=== PATIENT | male | born 1935 ===

== ENCOUNTER → 2016-09-06 | Day surgery (SDC) | payer MEDICARE, OTHER ==
[~2016-09-06] MED LIST: Acetaminophen/HYDROcodone 325-5 MG Tab PO ONE; Bacitracin/Neomycin/Polymyxin B Oint 0.9 GM U/D Packet ONE; Lactated Ringers 1,000 ML IV SCH; Lidocaine 2% with EPINEPHrine 1:100,000 20 ML MDV INJECT ONE; Sodium Bicarbonate 8.4% 50 MEQ/50 ML SDV ONE; Sodium Chloride 0.9% 10 ML Syringe FLUSH PRN
[2016-09-06 15:14] VITALS: BP 113/66
--- NOTE | 2016-09-07 07:54 | OR ---
DATE OF OPERATION: 09/06/2016 PREOPERATIVE DIAGNOSIS: 1. NONHEALING LESION WITH ULCERATION, LEFT LOWER LIP. 2. KERATOTIC LESION, LEFT CHEEK. 3. BASAL CELL CARCINOMA APPEARING LESION, RIGHT SCALP-TEMPORAL AREA. POSTOPERATIVE DIAGNOSIS: 1. NONHEALING LESION WITH ULCERATION, LEFT LOWER LIP. 2. KERATOTIC LESION, LEFT CHEEK. 3. BASAL CELL CARCINOMA APPEARING LESION, RIGHT SCALP-TEMPORAL AREA. SURGEON: Mike Pan MD PROCEDURE: 1. V-EXCISION WITH BIOPSY, LOWER LIP LESION. 2. SHAVED EXCISION, LEFT CHEEK KERATOTIC LESION. 3. WIDE EXCISION RIGHT TEMPORAL-SCALP LESION. DESCRIPTION OF PROCEDURE: Dr. Everton Weinstein from [facility] has kindly referred Mr. Key to me with regard to a nonhealing ulcer of the lower lip. It appears to be a few millimeters in diameter and at this particular point, looks as if it is decreasing in size. However, the question of this representing an early carcinoma has been entertained in with its appearance of nonhealing by excision surely needed. Along with this, a brown keratotic area involving the right cheek was noted. This measures 1.3 cm in diameter. It is benign in appearance and slightly radius and has a keratotic feel to it. The 3rd lesion is of the right roman catholic-scalp area. This measures about 5 mm in diameter. A peripheral zone of hyperemia and scaliness noted. The central area was raised and has a nodular appearance suggesting a basal cell carcinoma. All areas were carefully prepped with Betadine solution and draped. Following this, Xylocaine 2%-buffered solution was carefully infiltrated into these areas with separate needles. Following this, the keratotic area of the left cheek area was carefully shaved and the base then cauterized. An excellent appearance was noted. Fragments of this tissue were sent for pathologic evaluation; however, it surely suggest merely a keratosis. The central left lower lip lesion has a 3 to 4 mm ulceration and a peripheral area of some crater formation. The scar tissue was noted around it. It appears to be potentially a squamous cell carcinoma and with his history of this not healing, the lesion was carefully excised as a wedge resection. This was brought down to the muscularis. The excision was 2.1 cm in diameter and extending into the muscularis as a wedge excision. The excision site extends as a wedge into the lip with the depth at 2.5 cm. Hemostasis by gentle electrocoagulation. The wedge resection muscularis was carefully approximated using 5-0 Vicryl. The skin was closed with 5-0 Prolene and 5-0 Monocryl. Last lesion was of the right roman catholic-scalp area. This measured approximately 11 mm in diameter with a peripheral halo of hyperemia in crusting. The excision site measures 1.8 cm in length. The lesion was carefully excised. The anterior portion was labeled with a single suture and the subcutaneous tissue was then closed with 5-0 Vicryl and the skin with 5- 0 Prolene suture. Dressings were applied. The patient had no complications. He will be discharged to be followed by Dr. Everton Weinstein. I will forward a copy of the path reports to him at [facility] and I truly appreciate Dr. Weinstein's kind referral. I will ask if all sutures could be removed in approximately 9 to 10 days and the wound should be cleaned with hydrogen peroxide followed by application of antibiotic ointment daily. The prescription was also written for Lortab for discomfort. I will see Mr. Key when I return to the [facility] in one month. I do appreciate Dr. Weinstein's kindness and we will get a copy of this summary to him. SARAH/BASIM /[id number] MTDD
== END ==
LOC: CC.SDS 12:11
DX: C00.1 Malignant neoplasm of external lower lip (principal); L57.8 Other skin changes due to chronic exposure to nonionizing radiation; L82.1 Other seborrheic keratosis; C44.41 Basal cell carcinoma of skin of scalp and neck; E11.22 Type 2 diabetes mellitus with diabetic chronic kidney disease; N18.9 Chronic kidney disease, unspecified; E78.5 Hyperlipidemia, unspecified; E03.9 Hypothyroidism, unspecified; N40.0 Benign prostatic hyperplasia without lower urinary tract symptoms; F32.9 Major depressive disorder, single episode, unspecified; Z88.8 Allergy status to other drugs, medicaments and biological substances; Z79.82 Long term (current) use of aspirin; Z79.899 Other long term (current) drug therapy
CPT/HCPCS: 11442; 11622; 12031; 40520; 88305; A9270